=== PATIENT | male | born 1985 | race Hispanic/Latino ===

== ENCOUNTER 2024-10-01 07:35 | Day surgery (SDC) | payer OTHER ==
[~2024-10-01] VITALS: Ht 175.3 cm; Wt 92.5 kg
[~2024-10-01 07:35] MED LIST: LIDOCAINE 2% 100 MG/5 ML SDV (FOR ANES.) As Ordered ONE; MIDAZOLAM INJ 2 MG/2 ML VIAL As Ordered ONE; ROCURONIUM BROMIDE 50MG/5ML VIAL As Ordered ONE
[2024-10-01] MEDS ORDERED: LR 1,000 ML IV SCH ×2 (07:55→09:45)
[2024-10-01] MEDS ORDERED: LACRILUBE (AKWA TEARS) OPHTH OINT 3.5 GM As Ordered ONE (08:21)
[2024-10-01] MEDS: OXYMETAZOLINE 0.05% NASAL SPRAY As Ordered ONE (09:02)
[2024-10-01] MEDS: LIDOCAINE W/EPINEPHrine 1% 20 ML VIAL As Ordered ONE (09:03)
[2024-10-01] MEDS: METHYLENE BLUE 0.5% (5 MG/ML) 10 ML AMP As Ordered ONE (09:03)
[2024-10-01] MEDS ORDERED: dexAMETHasone 4 MG/ML 1 ML VIAL As Ordered ONE (09:12)
[2024-10-01] MEDS ORDERED: ACETAMINOPHEN 1000MG/100ML IV BAG As Ordered ONE (09:12)
[2024-10-01] MEDS ORDERED: KETOROLAC 30 MG/ML 1 ML VIAL As Ordered ONE (09:12)
[2024-10-01] MEDS ORDERED: ONDANSETRON 4MG 2ML VIAL As Ordered ONE (09:12)
[2024-10-01] MEDS ORDERED: SUGAMMADEX SODIUM 500 MG/5 ML VIAL As Ordered ONE (09:22)
[2024-10-01] MEDS ORDERED: HYDROMORPHONE HCL 0.5 MG/0.5 ML SYRINGE IV PRN (09:45)
[2024-10-01] MEDS ORDERED: ONDANSETRON 4MG 2ML VIAL IV PRN (09:45)
[2024-10-01 10:30] VITALS: BP 99/64; TEMP 97; O2SAT 95
== END 2024-10-01 11:07 | disposition home or self-care (01) ==
LOC: M SDC 07:35
PROVIDERS: ATTEND Otolaryngology
DX: J34.2 Deviated nasal septum (principal); J34.3 Hypertrophy of nasal turbinates; J34.89 Other specified disorders of nose and nasal sinuses; R06.83 Snoring
CPT/HCPCS: 30140; 30520; J0131; J1100; J1885; J2250; J2405; J3010; Q9968